=== PATIENT | male | born 1970 | race American Indian/Alaskan Native ===

== ENCOUNTER 2020-11-16 08:50 | Emergency (ER) | payer SELFPAY ==
[2020-11-16 08:57] VITALS: BP 148/98
--- NOTE | 2020-11-16 09:28 | Emergency Department Report ---
ED General Adult HPI - General Chief complaint: Wound/Laceration Stated complaint: FINGER LACERATION Time Seen by Provider: 11/16/20 09:23 Source: patient Mode of arrival: Ambulatory Limitations: No Limitations - History of Present Illness Initial comments: Patient presents with complaints of left thumb laceration last night (approximately 12 hours ago). He states he came in today because the laceration started bleeding again. Patient cut his hand with a clean knife at home. He states his tetanus vaccine is up-to-date. He states he does take daily aspirin. -: Sudden - Related Data Allergies Allergy/AdvReac Type Severity Reaction Status Date / Time lisinopril [From Zestril] AdvReac Swelling Verified 11/16/20 08:55 ED Review of Systems ROS: Stated complaint: FINGER LACERATION Other details as noted in HPI Musculoskeletal: denies: joint swelling, arthralgia Skin: denies: change in color ED Past Medical Hx - Social History Smoking Status: Current Every Day Smoker Substance Use Type: None ED Physical Exam - General Limitations: No Limitations General appearance: alert, in no apparent distress - Head Head exam: Present: atraumatic, normocephalic - Respiratory Respiratory exam: Absent: respiratory distress - Cardiovascular Cardiovascular Exam: Present: regular rate - Neurological Exam Neurological exam: Present: alert, oriented X3 - Psychiatric Psychiatric exam: Present: normal affect, normal mood - Skin Skin exam: Present: warm, dry, normal color. Absent: intact (Linear 2 cm laceration noted to left thumb with granulation tissue and minimal active bleeding; no swelling or obvious foreign bodies noted; patient has full range of motion of the thumb), rash ED Course Vital Signs 11/16/20 08:55 Temperature 98.3 F Pulse Rate 61 Respiratory 14 Rate Blood Pressure 148/98 O2 Sat by Pulse 100 Oximetry ED Medical Decision Making - Medical Decision Making Patient presents with complaints of left thumb laceration last night (approximately 12 hours ago). He states he came in today because the laceration started bleeding again. Patient cut his hand with a clean knife at home. He states his tetanus vaccine is up-to-date. He states he does take daily aspirin. No sutures required due to granulation tissue and timeframe of laceration. No significant active bleeding noted here in ED. Discussed wound care and follow- up with primary care in 3 to 5 days. Also discussed strict return precautions in detail with patient who verbalized understanding Critical care attestation.: If time is entered above; I have spent that time in minutes in the direct care of this critically ill patient, excluding procedure time. ED Disposition Clinical Impression: Laceration Disposition: MED SCREENING EXAM-LEFT Is pt being admited?: No Condition: Stable Instructions: Nonsutured Laceration Care Referrals: [facility] [Provider Group] - 3-5 Days
== END 2020-11-16 10:00 | disposition left against medical advice (07) ==
LOC: ED 08:50
DX: S61.012A Laceration without foreign body of left thumb without damage to nail, initial encounter (principal); F17.200 Nicotine dependence, unspecified, uncomplicated; Z88.8 Allergy status to other drugs, medicaments and biological substances; Z79.899 Other long term (current) drug therapy; W26.0XXA Contact with knife, initial encounter; Y93.89 Activity, other specified; Y92.89 Other specified places as the place of occurrence of the external cause; Y99.8 Other external cause status